=== PATIENT | female | born 1965 | race Caucasian/White ===

== ENCOUNTER 2024-07-16 16:41 | Inpatient (IN) | payer MEDICARE, MEDICAID ==
[~2024-07-16] VITALS: Ht 167.6 cm; Wt 97.2 kg
[2024-07-16 17:39] LABS: BASOPHILS % 0.5 % (0.0-2.0); EOSINOPHILS % 1.7 % (0.0-5.0); HEMATOCRIT. 38.8 % (36.0-48.0); HEMOGLOBIN. 12.8 g/dL (12.0-16.0); LYMPHOCYTES % 20.6 % (20.0-50.0); MEAN CORPUSCULAR HGB CONC 32.9 g/dL (31.0-37.0); MEAN CORPUSCULAR VOLUME 88.1 fL (81.0-99.0); MEAN PLATELET VOLUME 8.9 fl (7.4-10.4); NEUTROPHILS % 70.2 % (40.0-76.0); PLATELET 215 x1000/uL (130-400); RED BLOOD CELL COUNT 4.41 mill/uL (4.2-5.4); RED CELL DISTRIBUTION WIDTH 15.3 % (11.6-14.6); WHITE BLOOD COUNT 10.4 x1000/uL (4.5-11.0)
[2024-07-16 17:42] LABS: CHLORIDE 100 mEq/L (98-107); POTASSIUM 5.5 mEq/L (3.5-5.1); SODIUM 131 mEq/L (136-145)
[2024-07-16 17:43] LABS: CARBON DIOXIDE 25 mEq/L (21-32)
[2024-07-16 17:48] LABS: CREATININE 4.2 mg/dL (0.6-1.0); GLUCOSE 178 mg/dL (70-105); UREA NITROGEN BLOOD 59 mg/dL (9-23)
[2024-07-16 17:50] LABS: TROPONIN I HIGH SENSITIVITY 10 ng/L (3.0-34)
[2024-07-16] MEDS: SODIUM ZIRCONIUM CYCLOSILICATE 10GM/PACKET PO NR (19:07)
[2024-07-16] MEDS: FUROSEMIDE 40MG/4ML VIAL IVP NR (19:08)
[2024-07-16 19:30] LABS: TROPONIN I HIGH SENSITIVITY 10 ng/L (3.0-34)
[2024-07-16] MEDS ORDERED: DIPHENHYDRAMINE 50MG/ML VIAL IV PRN (19:30)
[2024-07-16] MEDS ORDERED: GUAIFENESIN 200MG/10ML SUGAR FREE UDC PO PRN (19:30)
[2024-07-16] MEDS ORDERED: DEXTROSE 50% WATER 50ML SYRINGE IV PRN (19:30)
[2024-07-16] MEDS ORDERED: ONDANSETRON HCL 4MG/2ML INJ IV PRN (19:30)
[2024-07-16] MEDS ORDERED: MAGNESIUM/ALUMINUM HYDROXIDE/SIMETHICONE 30ML UDC PO PRN (19:30)
[2024-07-16] MEDS ORDERED: ACETAMINOPHEN 325MG TABLET PO PRN (19:30)
[2024-07-16] MEDS ORDERED: IPRATROPIUM/ALBUTEROL 0.5-3(2.5)MG/3ML NEB HHN PRN (19:30)
[2024-07-16 20:25] LABS: CHLORIDE 98 mEq/L (98-107); POTASSIUM 5.4 mEq/L (3.5-5.1); SODIUM 130 mEq/L (136-145)
[2024-07-16 20:26] LABS: CALCIUM 8.9 mg/dL (8.7-10.4); CARBON DIOXIDE 25 mEq/L (21-32)
[2024-07-16] MEDS: NIFEDIPINE XL 90MG TAB PO SCH (20:26)
[2024-07-16] MEDS: CALCIUM CHLORIDE 1GM/10ML SYR IV NR (20:26)
[2024-07-16] MEDS: INSULIN LISPRO 100 UNITS/ML SUBCUT NR (20:28)
[2024-07-16 20:31] LABS: CREATININE 4.3 mg/dL (0.6-1.0); GLUCOSE 315 mg/dL (70-105); UREA NITROGEN BLOOD 65 mg/dL (9-23)
[2024-07-16 20:33] LABS: ALANINE AMINOTRANSFERASE 12 IU/L (10-49); ALBUMIN 3.5 g/dL (3.2-4.8); ASPARTATE AMINOTRANSFERASE 18 IU/L (<34); BILIRUBIN TOTAL 0.4 mg/dL (0.1-1.0); PROTEIN TOTAL 7.1 g/dL (6.0-8.3)
[2024-07-16] MEDS: FAMOTIDINE 20MG/2ML VIAL IV SCH (20:45)
[2024-07-16] MEDS: INSULIN LISPRO 100 UNITS/ML SUBCUT SCH (21:00)
[2024-07-16] MEDS: BUMETANIDE 1MG TABLET PO SCH (21:39)
[2024-07-16] MEDS: ATORVASTATIN CALCIUM 40MG TABLET PO SCH (21:39)
[2024-07-16] MEDS: BLOOD SUGAR DIAGNOSTIC STRIP TEST SCH (21:56)
[2024-07-16 22:01] VITALS: BP 137/68; PULSE 78; RESP 18; TEMP 36.5
[2024-07-17] VITALS (14 sets, daily range): BP systolic 98–186; BP diastolic 43–108; PULSE 54–63; RESP 15–20; TEMP 36.5–37.1; O2SAT 98–100
[2024-07-17] MEDS: CLONIDINE 0.1MG TABLET PO PRN (03:49)
[2024-07-17 07:01] LABS: CLARITY URINE CLEAR (CLEAR); COLOR URINE YELLOW (YELLOW); GLUCOSE URINE TRACE (NEGATIVE); KETONES URINE NEGATIVE (NEGATIVE); LEUKOCYTE ESTERASE URINE NEGATIVE (NEGATIVE); NITRITE URINE NEGATIVE (NEGATIVE); OCCULT BLOOD URINE NEGATIVE (NEGATIVE); PH URINE 5.5 (4.5-8.0); PROTEIN URINE 3+ (NEGATIVE); SPECIFIC GRAVITY URINE 1.011 (1.005-1.030); UROBILINOGEN URINE 0.2 E.U./dL (0.2-1.0)
[2024-07-17 07:39] LABS: *AMPHETAMINES SCREEN URINE NEGATIVE (NEGATIVE); *BENZODIAZEPINES SCREEN URINE NEGATIVE (NEGATIVE); SQUAMOUS EPITHELIAL CELL URINE 1+ /lpf (RARE/1+)
[2024-07-17 07:40] LABS: *BARBITURATES SCREEN URINE NEGATIVE (NEGATIVE); *COCAINE SCREEN URINE NEGATIVE (NEGATIVE); CANNABINOID URINE SCREEN NEGATIVE (NEGATIVE); ECSTASY MDMA SCREEN URINE NEGATIVE (NEGATIVE); METHADONE URINE SCREEN NEGATIVE (NEGATIVE); OPIATES URINE SCREEN NEGATIVE (NEGATIVE); PHENCYCLIDINE URINE SCREEN NEGATIVE (NEGATIVE); WBC URINE 0-2 /hpf (0-2)
[2024-07-17 08:42] LABS: HYALINE CASTS URINE 0-5 /lpf
[2024-07-17 08:43] LABS: BACTERIA URINE 3+; RBC URINE 0-2 /hpf (0-2)
[2024-07-17 09:42] LABS: BASOPHILS % 0.7 % (0.0-2.0); EOSINOPHILS % 3.2 % (0.0-5.0); HEMATOCRIT. 40.7 % (36.0-48.0); HEMOGLOBIN. 13.3 g/dL (12.0-16.0); LYMPHOCYTES % 24.5 % (20.0-50.0); MEAN CORPUSCULAR HEMOGLOBIN 28.6 pg (28.0-32.0); MEAN CORPUSCULAR HGB CONC 32.7 g/dL (31.0-37.0); MEAN CORPUSCULAR VOLUME 87.6 fL (81.0-99.0); MEAN PLATELET VOLUME 8.9 fl (7.4-10.4); MONOCYTES % 6.8 % (2.0-8.0); NEUTROPHILS % 64.8 % (40.0-76.0); PLATELET 218 x1000/uL (130-400); RED BLOOD CELL COUNT 4.65 mill/uL (4.2-5.4); RED CELL DISTRIBUTION WIDTH 15.3 % (11.6-14.6); WHITE BLOOD COUNT 6.3 x1000/uL (4.5-11.0)
[2024-07-17] MEDS: ENOXAPARIN 30MG/0.3ML SYR SUBCUT SCH (09:47)
[2024-07-17 09:58] LABS: POTASSIUM 5.4 mEq/L (3.5-5.1)
[2024-07-17 09:59] LABS: CALCIUM 9.5 mg/dL (8.7-10.4)
[2024-07-17 10:04] LABS: CREATININE 4.2 mg/dL (0.6-1.0)
[2024-07-17 10:06] LABS: T4 FREE 1.48 ng/dL (0.89-1.76); THYROID STIMULATING HORMONE 2.32 uIU/mL (0.55-4.78)
[2024-07-17] MEDS: INSULIN GLARGINE 100 UNITS/ML SUBCUT SCH (11:10)
[2024-07-17 11:54] LABS: HEPATITIS B SURFACE ANTIGEN NEGATIVE (Negative)
[2024-07-17 12:15] LABS: HEPATITIS C AB NON REACTIVE (Neg) (Negative)
[2024-07-17] MEDS: DOCUSATE SODIUM 100MG CAPSULE PO PRN (13:22)
[2024-07-17 14:07] LABS: HEPATITIS B SURFACE ANTIGEN NEGATIVE (Negative)
[2024-07-17 14:28] LABS: HEPATITIS A AB IGM NEGATIVE (Negative)
[2024-07-17 14:29] LABS: HEPATITIS B CORE AB IGM NEGATIVE (Negative); HEPATITIS C AB NON REACTIVE (Neg) (Negative)
[2024-07-17] MEDS: ACETAMINOPHEN 325MG TABLET PO PRN (14:50)
[2024-07-17] MEDS ORDERED: DEXTROSE 50% WATER 50ML SYRINGE IV PRN (16:30)
[2024-07-17 17:13] LABS: CREATINE KINASE MB FRACTION 1.7 ng/mL (0.5-3.6)
[2024-07-17] MEDS: BLOOD SUGAR DIAGNOSTIC STRIP TEST SCH (17:40)
[2024-07-17] MEDS: INSULIN LISPRO 100 UNITS/ML SUBCUT SCH (19:30)
[2024-07-17] MEDS: CEFTRIAXONE 1GM/50ML 50 ML IV SCH (21:45)
[2024-07-18] VITALS: BP 164/45; PULSE 62; RESP 18; TEMP 36.8; O2SAT 99
[2024-07-18 04:00] VITALS: BP 151/52; PULSE 54; RESP 18; TEMP 36.8; O2SAT 99
[2024-07-18 07:50] LABS: HEMATOCRIT 39.3 % (36.0-48.0); MEAN CORPUSCULAR HEMOGLOBIN 28.8 pg (28.0-32.0); MEAN CORPUSCULAR VOLUME 87.2 fL (81.0-99.0); PLATELET 201 x1000/uL (130-400); RED BLOOD CELL COUNT 4.51 mill/uL (4.2-5.4); RED CELL DISTRIBUTION WIDTH 15.5 % (11.6-14.6); WHITE BLOOD COUNT 6.6 x1000/uL (4.5-11.0)
[2024-07-18 08:00] VITALS: BP 170/56; PULSE 56; RESP 15; TEMP 36.7; O2SAT 95
[2024-07-18 08:15] LABS: CHLORIDE 101 mEq/L (98-107); POTASSIUM 4.8 mEq/L (3.5-5.1); SODIUM 134 mEq/L (136-145)
[2024-07-18 08:16] LABS: CALCIUM 8.5 mg/dL (8.7-10.4); CARBON DIOXIDE 26 mEq/L (21-32)
[2024-07-18 08:21] LABS: CREATININE 3.3 mg/dL (0.6-1.0); GLUCOSE 157 mg/dL (70-105); UREA NITROGEN BLOOD 58 mg/dL (9-23)
[2024-07-18 08:23] LABS: PHOSPHORUS 4.7 mg/dL (2.5-4.9)
[2024-07-18] MEDS: POLYETHYLENE GLYCOL 3350 (17GM) 1 DOSE PACK PO SCH (08:55)
[2024-07-18 12:00] VITALS: BP 167/56; PULSE 18; RESP 18; TEMP 36.6; O2SAT 99
[2024-07-18] MEDS: LACTULOSE 20G/30ML UDC PO SCH (13:00)
[2024-07-18 16:00] VITALS: BP 173/59; PULSE 57; RESP 17; TEMP 36.7; O2SAT 99
[2024-07-18] MEDS: LOSARTAN 50 MG TABLET PO SCH (18:15)
[2024-07-18 20:00] VITALS: BP 163/57; PULSE 60; RESP 20; TEMP 36.6; O2SAT 99
[2024-07-18] MEDS: MELATONIN 3MG TABLET PO PRN (21:34)
[2024-07-19] VITALS (8 sets, daily range): BP systolic 160–198; BP diastolic 52–74; PULSE 59–68; RESP 18–20; TEMP 36.3–36.7; O2SAT 95–98
[2024-07-19] MEDS: HYDRALAZINE 20MG/ML VIAL IV PRN (00:32)
[2024-07-19 06:29] LABS: CALCIUM 9.2 mg/dL (8.7-10.4); CARBON DIOXIDE 26 mEq/L (21-32); CHLORIDE 101 mEq/L (98-107); POTASSIUM 4.4 mEq/L (3.5-5.1); SODIUM 137 mEq/L (136-145)
[2024-07-19 06:33] LABS: CREATININE 3.3 mg/dL (0.6-1.0); EOSINOPHILS % 3.2 % (0.0-5.0); HEMOGLOBIN. 13.9 g/dL (12.0-16.0); LYMPHOCYTES % 35.6 % (20.0-50.0); MEAN CORPUSCULAR HEMOGLOBIN 28.8 pg (28.0-32.0); MEAN CORPUSCULAR HGB CONC 33.1 g/dL (31.0-37.0); MONOCYTES % 7.3 % (2.0-8.0); NEUTROPHILS % 52.9 % (40.0-76.0); PLATELET 235 x1000/uL (130-400); RED BLOOD CELL COUNT 4.82 mill/uL (4.2-5.4); WHITE BLOOD COUNT 7.3 x1000/uL (4.5-11.0)
[2024-07-19 06:34] LABS: GLUCOSE 107 mg/dL (70-105); UREA NITROGEN BLOOD 57 mg/dL (9-23)
[2024-07-19 06:36] LABS: PHOSPHORUS 3.8 mg/dL (2.5-4.9)
[2024-07-19] MEDS: HYDRALAZINE HCL 100MG TABLET PO SCH (08:47)
[2024-07-19] MEDS ORDERED: LACTULOSE 20G/30ML UDC PO PRN (09:00)
[2024-07-19] MEDS ORDERED: BUME1TAB8 PO (11:33)
[2024-07-19] MEDS ORDERED: POLY17PO43 PO (11:33)
[2024-07-19] MEDS ORDERED: NIFE90TA60 PO (11:33)
[2024-07-19] MEDS ORDERED: LANTUSUD SUBCUT (11:33)
[2024-07-19] MEDS ORDERED: HYDR100T31 PO (11:33)
[2024-07-19] MEDS ORDERED: LOSA50TA41 PO (11:33)
[2024-07-19] MEDS ORDERED: LIP40 PO (11:33)
[2024-07-19] MEDS ORDERED: LACT-390 PO (11:33)
== END 2024-07-19 17:45 | disposition home health service (06) | DRG 640 ==
LOC: ER 16:41 → EDBEDREQ 18:17 → EDBEDREQTM 18:17 → ENRESERV 20:55 → 7WST 21:08
PROVIDERS: ADMIT Hospitalist; ATTEND Hospitalist
PROC: 5A1D70Z Performance of Urinary Filtration, Intermittent, Less than 6 Hours Per Day (ICD-10-PCS; principal; 2024-07-17)
DX: E87.5 Hyperkalemia (principal); N18.6 End stage renal disease; I13.2 Hypertensive heart and chronic kidney disease with heart failure and with stage 5 chronic kidney disease, or end stage renal disease; Z59.00 Homelessness unspecified; E11.22 Type 2 diabetes mellitus with diabetic chronic kidney disease; E11.65 Type 2 diabetes mellitus with hyperglycemia; I50.9 Heart failure, unspecified; Z99.2 Dependence on renal dialysis; D64.9 Anemia, unspecified; Z91.158 Patient's noncompliance with renal dialysis for other reason; J44.9 Chronic obstructive pulmonary disease, unspecified; E87.1 Hypo-osmolality and hyponatremia; R00.1 Bradycardia, unspecified; E78.5 Hyperlipidemia, unspecified; I44.0 Atrioventricular block, first degree; K59.00 Constipation, unspecified; Z88.2 Allergy status to sulfonamides; Z79.4 Long term (current) use of insulin; Z79.899 Other long term (current) drug therapy
CPT/HCPCS: 36415; 71045; 80048; 80053; 80061; 80305; 81003; 82550; 82553; 82962; 83036; 83735; 83880; 84100; 84439; 84443; 84484; 85025; 85027; 86705; 86709; 87340; 90935; 93005; 99285; A4606; J0360; J0696; J1650; J1815; J1940; J3490